=== PATIENT | male | born 1970 | race African-American/Black ===

== ENCOUNTER 2016-02-14 10:51 | Emergency (ER) | payer BC, OTHER ==
[~2016-02-14] VITALS: Ht 175.3 cm; Wt 77.1 kg
[~2016-02-14 10:51] MED LIST: NAPROSYN500 MG PO; SUDAFED30 MG PO
[2016-02-14] MEDS ORDERED: CLARITIN-D 12 H1 TA1 PO (11:43)
[2016-02-14] MEDS ORDERED: IBUPROFEN 800800 M1 PO (11:43)
[2016-02-14 11:57] VITALS: BP 123/82
== END 2016-02-14 11:58 | disposition home or self-care (01) ==
LOC: ER 10:51
DX: J06.9 Acute upper respiratory infection, unspecified (principal); R59.1 Generalized enlarged lymph nodes